=== PATIENT | male | born 1985 | race Caucasian/White ===

== ENCOUNTER 2024-08-29 00:36 | Inpatient (IN) | payer BC ==
[~2024-08-29] VITALS: Ht 182.9 cm; Wt 94.5 kg
[2024-08-29] VITALS (10 sets, daily range): BP systolic 132–174; BP diastolic 89–116; PULSE 96–118; RESP 13–20; TEMP 36.6–36.9; O2SAT 92–100
[2024-08-29] MEDS: ONDANSETRON HCL 4MG/2ML INJ IV STA (02:12)
[2024-08-29] MEDS: MAGNESIUM 2 G PREMIX 50 ML IV ONE (02:12)
[2024-08-29] MEDS: PANTOPRAZOLE SODIUM 40 MG/VIAL IV STA (02:12)
[2024-08-29] MEDS: FOLIC ACID 1 MG, THIAMINE HCL 100 MG, MVI, ADULT NO.1 10 ML in DEXTROSE 5% WATER 1,000 ML IV ONE (02:15)
[2024-08-29] MEDS ORDERED: LORAZEPAM 2MG/ML INJ IV ONE (02:15)
[2024-08-29] MEDS: LORAZEPAM 2MG/ML UD SYRINGE IV NR (02:16)
[2024-08-29 02:28] LABS: CHLORIDE 96 mEq/L (98-107); POTASSIUM 3.9 mEq/L (3.5-5.1); SODIUM 137 mEq/L (136-145)
[2024-08-29 02:29] LABS: CARBON DIOXIDE 16 mEq/L (21-32)
[2024-08-29 02:30] LABS: CALCIUM 9.6 mg/dL (8.7-10.4); HEMOGLOBIN. 14.4 g/dL (14.0-18.0); MEAN CORPUSCULAR VOLUME 75.6 fL (80.0-94.0); RED CELL DISTRIBUTION WIDTH 14.7 % (11.6-14.6)
[2024-08-29 02:34] LABS: CREATININE 2.1 mg/dL (0.6-1.3); GLUCOSE 139 mg/dL (70-105)
[2024-08-29 02:35] LABS: ETHANOL BLOOD < 10 mg/dL (<10); UREA NITROGEN BLOOD 28 mg/dL (9-23)
[2024-08-29 02:36] LABS: ALANINE AMINOTRANSFERASE 26 IU/L (10-49); ALBUMIN 5.5 g/dL (3.2-4.8); ASPARTATE AMINOTRANSFERASE 45 IU/L (<34); BILIRUBIN DIRECT 0.2 mg/dL (<=3.0)
[2024-08-29 02:37] LABS: BILIRUBIN TOTAL 0.7 mg/dL (0.1-1.0); INR 1.2; PROTEIN TOTAL 8.6 g/dL (6.0-8.3); PROTHROMBIN TIME 12.7 sec (9.6-11.0)
[2024-08-29 02:44] LABS: DIFFERENTIAL COMMENT 1; HEMATOCRIT. 44.5 % (42.0-52.0); MEAN CORPUSCULAR HEMOGLOBIN 24.4 pg (28.0-32.0); MEAN CORPUSCULAR HGB CONC 32.3 g/dL (31.0-37.0); MEAN PLATELET VOLUME 8.4 fl (7.4-10.4); PLATELET 229 x1000/uL (130-400); RED BLOOD CELL COUNT 5.88 mill/uL (4.7-6.1); WHITE BLOOD COUNT 21.7 x1000/uL (4.5-11.0)
[2024-08-29 02:57] LABS: LACTIC ACID 11.1 mmol/L (0.4-2.0)
[2024-08-29 04:06] LABS: PLATELET ESTIMATE NORMAL
[2024-08-29 04:07] LABS: HYPOCHROMASIA 1+; MICROCYTOSIS 1+
[2024-08-29] MEDS: SODIUM CHLORIDE 0.9% 1,000 ML IV ONE (05:02)
[2024-08-29] MEDS: LORAZEPAM 2MG/ML INJ IV ONE (05:03)
[2024-08-29] MEDS ORDERED: DIPHENHYDRAMINE 50MG/ML VIAL IV PRN (05:15)
[2024-08-29] MEDS ORDERED: MVI, ADULT NO.1 10 ML, FOLIC ACID 1 MG, THIAMINE HCL 100 MG in SODIUM CHLORIDE 0.9% 1,0... IV SCH (05:15)
[2024-08-29] MEDS: HYDRALAZINE 20MG/ML VIAL IV PRN (06:26)
[2024-08-29] MEDS ORDERED: VANCOMYCIN 1.5GM/250ML IV NR (07:30)
[2024-08-29] MEDS: DIAZEPAM 5 MG/ML 2ML SYR IV PRN (07:57)
[2024-08-29] MEDS: METOPROLOL TARTRATE 100MG TABLET PO SCH (09:11)
[2024-08-29] MEDS: CLONIDINE 0.1MG TABLET PO SCH (09:11)
[2024-08-29] MEDS: ONDANSETRON HCL 4MG/2ML INJ IV PRN (09:12)
[2024-08-29] MEDS: PIPERACILLIN/TAZO 3.375G/50ML 50 ML IV NR (09:12)
[2024-08-29] MEDS: PANTOPRAZOLE SODIUM 40 MG/VIAL IV SCH (09:12)
[2024-08-29] MEDS: VANCOMYCIN 1.5GM PMX (XELLIA) 300 ML IV NR (09:21)
[2024-08-29] MEDS: SODIUM BICARBONATE 50 MEQ in DEXTROSE 5% WATER 950 ML IV SCH (12:27)
[2024-08-29] MEDS ORDERED: GABA-290 PO (12:43)
[2024-08-29] MEDS ORDERED: BACL-141 PO (12:45)
[2024-08-29] MEDS ORDERED: VARE1TAB21 PO (12:46)
[2024-08-29] MEDS ORDERED: TRAZ-252 PO (12:47)
[2024-08-29] MEDS: CHLORDIAZEPOXIDE 25MG CAPSULE PO SCH (13:28)
[2024-08-29] MEDS ORDERED: PIPERACILLIN/TAZO 3.375G/50ML 50 ML IV SCH (14:00)
[2024-08-30] VITALS: BP 118/73; PULSE 82; RESP 13; TEMP 36.4; O2SAT 100
[2024-08-30] MEDS: DEXT 5%/0.45% NACL KCL 10MEQ/L 1,000 ML IV SCH (00:04)
[2024-08-30 02:00] VITALS: BP 133/97; PULSE 82; RESP 18; O2SAT 99
[2024-08-30 03:40] LABS: CLARITY URINE CLEAR (CLEAR); COLOR URINE YELLOW (YELLOW); GLUCOSE URINE NEGATIVE (NEGATIVE); KETONES URINE NEGATIVE (NEGATIVE); LEUKOCYTE ESTERASE URINE NEGATIVE (NEGATIVE); NITRITE URINE NEGATIVE (NEGATIVE); OCCULT BLOOD URINE 1+ (NEGATIVE); PROTEIN URINE TRACE (NEGATIVE); SPECIFIC GRAVITY URINE 1.007 (1.005-1.030); UROBILINOGEN URINE 0.2 E.U./dL (0.2-1.0)
[2024-08-30 04:00] VITALS: BP 122/72; PULSE 82; RESP 18; TEMP 36.6; O2SAT 99
[2024-08-30 04:33] LABS: *AMPHETAMINES SCREEN URINE NEGATIVE (NEGATIVE); *BARBITURATES SCREEN URINE NEGATIVE (NEGATIVE); *BENZODIAZEPINES SCREEN URINE PRESUMPTIVE POSITIVE (NEGATIVE); *COCAINE SCREEN URINE NEGATIVE (NEGATIVE)
[2024-08-30 04:34] LABS: CANNABINOID URINE SCREEN PRESUMPTIVE POSITIVE (NEGATIVE); ECSTASY MDMA SCREEN URINE NEGATIVE (NEGATIVE); METHADONE URINE SCREEN NEGATIVE (NEGATIVE); OPIATES URINE SCREEN NEGATIVE (NEGATIVE); PHENCYCLIDINE URINE SCREEN NEGATIVE (NEGATIVE)
[2024-08-30 05:52] LABS: RBC URINE 0-2 /hpf (0-2); SQUAMOUS EPITHELIAL CELL URINE FEW /lpf (RARE/1+); WBC URINE 0-2 /hpf (0-2)
[2024-08-30 05:53] LABS: BACTERIA URINE NONE SEEN
[2024-08-30 06:00] VITALS: BP 152/115; PULSE 91; RESP 14; O2SAT 97
[2024-08-30 08:00] VITALS: BP 151/116; PULSE 105; RESP 15; TEMP 36.6; O2SAT 99
[2024-08-30 08:56] LABS: CHLORIDE 100 mEq/L (98-107); POTASSIUM 3.2 mEq/L (3.5-5.1); SODIUM 140 mEq/L (136-145)
[2024-08-30 08:57] LABS: CARBON DIOXIDE 30 mEq/L (21-32)
[2024-08-30] MEDS ORDERED: VANCOMYCIN 1.25GM/250ML 250 ML IV SCH (09:00)
[2024-08-30 09:01] LABS: BASOPHILS % 0.2 % (0.0-2.0); DIFFERENTIAL COMMENT 0; EOSINOPHILS % 0.1 % (0.0-5.0); HEMOGLOBIN. 12.7 g/dL (14.0-18.0); LYMPHOCYTES % 13.4 % (20.0-50.0); MEAN CORPUSCULAR HEMOGLOBIN 24.7 pg (28.0-32.0); MEAN CORPUSCULAR HGB CONC 32.7 g/dL (31.0-37.0); MEAN CORPUSCULAR VOLUME 75.6 fL (80.0-94.0); MONOCYTES % 4.7 % (2.0-8.0); NEUTROPHILS % 81.6 % (40.0-76.0); PLATELET 108 x1000/uL (130-400); RED BLOOD CELL COUNT 5.16 mill/uL (4.7-6.1); RED CELL DISTRIBUTION WIDTH 14.4 % (11.6-14.6); WHITE BLOOD COUNT 10.7 x1000/uL (4.5-11.0)
[2024-08-30 09:02] LABS: GLUCOSE 75 mg/dL (70-105); UREA NITROGEN BLOOD 12 mg/dL (9-23)
[2024-08-30 10:01] VITALS: BP 134/92; PULSE 85; RESP 15; O2SAT 99
[2024-08-30] MEDS: POTASSIUM CHLORIDE 20MEQ TABLET SR PO NR (11:29)
[2024-08-30] MEDS ORDERED: MAGNESIUM 1 G PREMIX 100 ML IV NR (12:00)
[2024-08-30] MEDS ORDERED: POTASSIUM PHOSPHATE 30 MMOL in SODIUM CHLORIDE 0.9% 490 ML IV NR (12:00)
== END 2024-08-30 11:40 | disposition left against medical advice (07) | DRG 683 ==
LOC: ER 00:36 → 5EST 04:54
PROVIDERS: ADMIT Internal Medicine; ATTEND Internal Medicine
DX: N17.9 Acute kidney failure, unspecified (principal); F10.231 Alcohol dependence with withdrawal delirium; R65.10 Systemic inflammatory response syndrome (SIRS) of non-infectious origin without acute organ dysfunction; I12.9 Hypertensive chronic kidney disease with stage 1 through stage 4 chronic kidney disease, or unspecified chronic kidney disease; N18.9 Chronic kidney disease, unspecified; E83.39 Other disorders of phosphorus metabolism; Z53.29 Procedure and treatment not carried out because of patient's decision for other reasons; E87.6 Hypokalemia; F32.A Depression, unspecified; F17.200 Nicotine dependence, unspecified, uncomplicated; Z90.5 Acquired absence of kidney
CPT/HCPCS: 36415; 74176; 80048; 80076; 80305; 80320; 81003; 83605; 83735; 84100; 85025; 93005; 99291; A4606; J0360; J2060; J2405; J2470; J2543; J3370; J3411; J3475; J3490; J7030; J7040; J7070; G0480